=== PATIENT | male | born 1985 | race Two or more races ===

== ENCOUNTER 2019-06-22 17:02 | Emergency (ER) | payer SELFPAY ==
[~2019-06-22] VITALS: Ht 157.5 cm; Wt 56.7 kg
--- NOTE | 2019-06-22 17:23 | NUR ---
ISABEL IS AT THE BEDSIDE.
--- NOTE | 2019-06-22 17:23 | NUR ---
20G IV STARTED IN RT HAND. BLOOD WAS DRAWN AND SENT TO LAB.
--- NOTE | 2019-06-22 17:25 | NUR ---
IV FLUID STARTED AND PT REC'D MEDICATION ORDERED.
[2019-06-22] MEDS ORDERED: LORAZEPAM INJ 2 MG/ML VIAL IV ONE (17:30)
[2019-06-22] MEDS ORDERED: IV NS 0.9% 1,000 ML BAG IV ONE ×2 (17:30→20:30)
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
[2019-06-22 17:35] LABS: BASOPHILS % (AUTO) 0.5 % (0.0-2.0); EOSINOPHILS % (AUTO) 1.2 % (0.0-6.0); HEMATOCRIT 44 % (39-51); HEMOGLOBIN 14.6 g/dL (13.5-17.5); LYMPHOCYTES # (AUTO) 1.4 /CMM (0.8-4.8); LYMPHOCYTES % (AUTO) 15.6 % (20.0-44.0); MEAN CORPUSCULAR HGB CONC 33 g/dl (31.0-36.0); MEAN CORPUSCULAR VOLUME 92 fL (80-96); MONOCYTES # (AUTO) 0.6 /CMM (0.1-1.30); NEUTROPHILS # (AUTO) 6.9 /CMM (1.8-8.9); NEUTROPHILS % (AUTO) 75.7 % (43.0-81.0); PLATELET COUNT (AUTO) 284 /CMM (150-450); RED BLOOD CELL COUNT(AUTO) 4.79 MIL/uL (4.5-6.0); WHITE BLOOD COUNT (AUTO) 9.1 K/uL (4.3-11.0)
[2019-06-22] MEDS ORDERED: LORAZEPAM INJ 2 MG/ML VIAL ONE (17:39)
[2019-06-22 17:42] LABS: CALCIUM, SERUM 9.3 mg/dL (8.5-10.1); CARBON DIOXIDE 27 mmol/L (21-32); CHLORIDE 104 mmol/L (98-107); GLUCOSE 88 mg/dL (74-106); POTASSIUM 3.8 mmol/L (3.5-5.1); SODIUM SERUM 142 mmol/L (136-145); UREA NITROGEN, BLOOD 20 mg/dL (7-18)
[2019-06-22 17:47] LABS: ALANINE AMINOTRANSFERASE 33 U/L (12-78); ALBUMIN 4.2 g/dL (3.4-5.0); ALCOHOL, BLOOD < 3 mg/dL (0-0); ALKALINE PHOSPHATASE 135 U/L (46-116); ASPARTATE AMINOTRANSFERASE 47 U/L (15-37); BILIRUBIN,DIRECT 0.1 mg/dL (0.0-0.2); BILIRUBIN,TOTAL 0.5 mg/dL (0.2-1.0); TOTAL PROTEIN, SERUM 7.7 g/dL (6.4-8.2)
[2019-06-22 17:48] LABS: SALICYLATE < 2.8 mg/dL (2.8-20.0)
--- NOTE | 2019-06-22 18:49 | NUR ---
IN AND OUT CATH DONE AT THE BEDSIDE. APPROX 100 ML YELLOW URINE OUTPUT NOTED. SAMPLE SENT TO LAB.
[2019-06-22 19:06] LABS: BILIRUBIN,URINE SMALL (NEGATIVE); BLOOD, URINE Negative Ery/uL (NEGATIVE); COLOR,URINE Yellow (YELLOW); KETONES,URINE 15 (NEGATIVE); LEUKOCYTE ESTERASE ,URINE Negative (NEGATIVE); NITRITE, URINE Negative (NEGATIVE); PROTEIN,URINE 30 mg/dl (NEGATIVE); UGLUCOSE Negative (NEGATIVE)
[2019-06-22 19:09] LABS: APPEARANCE,URINE SLIGHTLY HAZY (CLEAR); BACTERIA,URINE Few /HPF (None Seen); RBC,URINE 0-2 /HPF (0-2); SQUAMOUS EPITHELIAL CELL,UR Few /HPF (None Seen)
[2019-06-22 19:10] LABS: MUCUS,URINE Moderate /LPF (None Seen)
--- NOTE | 2019-06-22 19:28 | NUR ---
PT APPEARS TO BE RESTING COMFORTABLY WITH NO S/S OF PAIN OR DISTRESS. WILL CONTINUE TO MONITOR THE PT.
--- NOTE | 2019-06-22 20:58 | NUR ---
PT APPEARS TO BE SLEEPING SOUNDLY WITH NO S/S OF PAIN OR DISTRESS.
--- NOTE | 2019-06-22 22:34 | NUR ---
PT APPEARS TO BE AWAKE. PT IS STICKING HIS LEGS UP IN THE AIR AND MAKING STRANGE NOISES. PT IS ON THE MONITOR AND CONTINUOUS PULSE OX.
--- NOTE | 2019-06-22 22:54 | NUR ---
PT APPEARS TO BE SLEEPING SOUNDLY WITH NO S/S OF PAIN OR DISTRESS.
--- NOTE | 2019-06-23 01:17 | NUR ---
PT IS AWAKE WITH BIZZARE BEHAVIOR. SITTER IS AT THE BEDSIDE. WILL CONTINUE TO MONITOR THE PT.
[2019-06-23] MEDS ORDERED: LORAZEPAM INJ 2 MG/ML VIAL ONE (01:37)
[2019-06-23] MEDS ORDERED: LORAZEPAM INJ 2 MG/ML VIAL IV ONE (02:00)
--- NOTE | 2019-06-23 02:03 | NUR ---
PT APPEARS TO BE RESTING COMFORTABLY WITH NO S/S OF PAIN OR DISTRESS. PT IS ON THE MONITOR. SITTER IS AT THE BEDSIDE.
--- NOTE | 2019-06-23 04:28 | NUR ---
Patient is resting comfortably in bed with eyes closed. Easily aroused. VSS
[2019-06-23 06:14] VITALS: BP 112/73
--- NOTE | 2019-06-23 06:14 | NUR ---
IV removed. Catheter intact and site benign. Pressure and 4x4 applied to site. No bleeding noted.
--- NOTE | 2019-06-23 06:14 | NUR ---
Patient is resting comfortably in bed with eyes closed. Easily aroused. VSS
--- NOTE | 2019-06-23 06:16 | NUR ---
PT RESTING COMFORTABLY IN BED. WAKES UP INTERMITTENTLY WITH BIZZARE BEHAVIOR, SCREAMING INCOHERENTLY. SITTER AT BEDSIDE. WILL CONTINUE TO MONITOR
--- NOTE | 2019-06-23 08:48 | NUR ---
PATIENT REFUSED TO SEE DRAPERY OPERATOR, REFUSED ALL SERVICES, PATIENT ADAMANT ABOUT LEAVING. CLOTHES PROVIDED. DENIES SI/HI AT THIS TIME. AMBULATORY.
--- NOTE | 2019-06-23 09:04 | NUR ---
Patient a/ox4, no distress noted. IV removed. Catheter intact and site benign. Pressure and 4x4 applied to site. No bleeding noted. Patient given written and verbal discharge instructions. Patient verbalizes understanding of instructions. Patient is ambulatory with steady gait. Refuses offer of nursing home placement. Patient given list of available shelters in surrounding area. Provided clothes. Patient refused food and transportation services as he's adamant about leaving.
== END 2019-06-23 09:07 | disposition home or self-care (01) ==
LOC: ER 17:05
DX: R41.82 Altered mental status, unspecified (principal); F19.10 Other psychoactive substance abuse, uncomplicated; Z59.0 Homelessness
CPT/HCPCS: 36415; 80048; 80076; 80305; 80307; 80329; 81001; 85025; 87086; 96361; 96374; 96376; 99285; G0480; J2060 ×2; J7030 ×2; 81000-TC

== ENCOUNTER 2019-06-28 08:45 | Emergency (ER) | payer OTHER ==
[~2019-06-28] VITALS: Ht 167.6 cm; Wt 61.2 kg
[2019-06-28 08:47] VITALS: BP 110/65
[2019-06-28] MEDS ORDERED: OLANZAPINE 5 MG TABLET ONE (08:52)
--- NOTE | 2019-06-28 08:57 | NUR ---
Patient discharged in custody in stable condition. Written and verbal after care instructions given. Patient verbalizes understanding of instruction.
[2019-06-28] MEDS ORDERED: OLANZAPINE 5 MG TABLET PO ONE (09:00)
== END 2019-06-28 08:58 ==
LOC: ER 08:46
DX: F20.9 Schizophrenia, unspecified (principal); Z59.0 Homelessness